=== PATIENT | male | born 1985 | race African-American/Black ===

== ENCOUNTER 2018-11-23 21:02 | Emergency (ER) | payer SELFPAY ==
[~2018-11-23] VITALS: Ht 175.3 cm; Wt 68.0 kg
--- NOTE | 2018-11-23 22:04 | PHYS DOC ---
Past Medical History Past Medical History: No Pertinent History Past Surgical History: No Surgical History Alcohol Use: None Drug Use: None Adult General Chief Complaint Chief Complaint: EARACHE/EAR PAIN HPI HPI 33-year-old male presents with a chief complaint of right sided headache. Patient states this a.m. he started having bilateral ear fullness right greater than left. Prior to arrival patient and radiated from right ureter right occipital region. Patient denies any associated nausea vomiting or blurred vision. Review of Systems Review of Systems Constitutional: Denies fever or chills [] Eyes: Denies change in visual acuity, redness, or eye pain [] HENT: Denies nasal congestion or sore throat [positive ear pain bilateral ] Respiratory: Denies cough or shortness of breath [] Cardiovascular: No additional information not addressed in HPI [] GI: Denies abdominal pain, nausea, vomiting, bloody stools or diarrhea [] : Denies dysuria or hematuria [] Musculoskeletal: Denies back pain or joint pain [] Integument: Denies rash or skin lesions [] Neurologic: Denies , focal weakness or sensory changes [positive headache] Endocrine: Denies polyuria or polydipsia [] All other systems were reviewed and found to be within normal limits, except as documented in this note. Current Medications Current Medications Current Medications Medications (Trade) Dose Ordered Sig/[facility] Start Time Stop Time Status Last Admin Dose Admin Diphenhydramine HCl (Benadryl) 25 mg 1X ONCE 11/23/18 22:15 11/23/18 22:16 DC 11/23/18 23:39 25 MG Ketorolac Tromethamine (Toradol 30mg Vial) 30 mg 1X ONCE 11/23/18 22:15 11/23/18 22:16 DC 11/23/18 22:15 30 MG Allergies Allergies Allergies Coded Allergies Type Severity Reaction Last Updated Verified No Known Drug Allergies 11/23/18 No Physical Exam Physical Exam Constitutional: Well developed, well nourished, no acute distress, non-toxic appearance. [] HENT: Normocephalic, atraumatic, bilateral external ears normal, oropharynx moist, no oral exudates, nose normal. [] Eyes: PERRLA, EOMI, conjunctiva normal, no discharge. [] Neck: Normal range of motion, no tenderness, supple, no stridor. [] Cardiovascular:Heart rate regular rhythm, no murmur [] Lungs & Thorax: Bilateral breath sounds clear to auscultation [] Abdomen: Bowel sounds normal, soft, no tenderness, no masses, no pulsatile masses. [] Skin: Warm, dry, no erythema, no rash. [] Back: No tenderness, no CVA tenderness. [] Extremities: No tenderness, no cyanosis, no clubbing, ROM intact, no edema. [] Neurologic: Alert and oriented X 3, normal motor function, normal sensory function, no focal deficits noted. [Patient amylase with a normal steady gait no facial weakness extraocular muscles intact] Psychologic: Affect normal, judgement normal, mood normal. [] Current Patient Data Vital Signs Vital Signs Date Time Temp Pulse Resp B/P (MAP) Pulse Ox O2 Delivery O2 Flow Rate FiO2 11/24/18 01:23 86 20 97/50 (66) 99 Room Air 11/23/18 21:05 100.4 100.4 EKG EKG [] Radiology/Procedures Radiology/Procedures [] Course & Med Decision Making Course & Med Decision Making Pertinent Labs and Imaging studies reviewed. (See chart for details) []Patient was evaluated for chief complaint. Workup consisted of radiologic imaging. CT head negative for acute abnormalities. Treatment included Benadryl Toradol. Headache improved post treatment. Dragon Disclaimer Dragon Disclaimer This electronic medical record was generated, in whole or in part, using a voice recognition dictation system. Departure Departure Impression: Primary Impression: Headache Additional Impression: Otalgia Disposition: HOME, SELF-CARE Condition: STABLE Referrals: NO PCP (PCP) Patient Instructions: General Headache Without Cause, Otalgia Scripts Naproxen (NAPROSYN) 500 Mg Tablet 500 MG PO BID for 10 Days, #20 TAB Prov: DANIS OROSCO DO 11/24/18 Problem Qualifiers Primary Impression: Headache Headache type: unspecified Headache chronicity pattern: unspecified pattern Intractability: not intractable Qualified Codes: R51 - Headache Additional Impression: Otalgia Laterality: bilateral Qualified Codes: H92.03 - Otalgia, bilateral DANIS OROSCO DO Nov 23, 2018 22:04
[2018-11-23] MEDS ORDERED: diphenhydrAMINE 50 MG/ML VIAL IVP ONE (22:15)
[2018-11-23] MEDS ORDERED: KETOROLAC 30 MG/ML VIAL. IV ONE (22:15)
--- NOTE | 2018-11-23 22:51 | RAD ---
CT HEAD WO CONTRAST Clinical indications: headache, rt ear pain, prior sent COMPARISON: March 29, 2010 Technique: Noncontrast axial cross sectional scanning of the head was performed. PQRS compliance Statement One or more of the following individualized dose reduction techniques were utilized for this study: 1. Automated exposure control 2. Adjustment of the mA and/or kV according to patient size 3. Use of iterative reconstruction technique Findings: No acute intracranial hemorrhage or midline shift or mass-effect or hydrocephalus or extra-axial fluid collection is seen. No focal hypodense area or sulci effacement is seen to indicate an acute infarct or edema radiographically. No skull fracture or pneumocephalus is seen. No opacification of the mastoid sinuses or the middle ear cavities or the paranasal sinuses is seen. The maxillary sinuses are not completely seen in this study. Cerumen is present within the left external auditory canal. Impression: No acute intracranial abnormality is seen. Electronically signed by: Dennis Singh MD (11/23/2018 10:49 PM) [facility]
[2018-11-24] MEDS ORDERED: NAPR-683 PO (01:14)
[2018-11-24 01:23] VITALS: BP 97/50
== END 2018-11-24 01:27 | disposition home or self-care (01) ==
LOC: ER 21:02
DX: R51 Headache (principal); H92.03 Otalgia, bilateral
CPT/HCPCS: 70450; 96374; 96375; 99284; J1200; J1885

== ENCOUNTER 2020-05-20 19:35 | Emergency (ER) | payer MEDICAID ==
[~2020-05-20] VITALS: Ht 175.3 cm; Wt 68.2 kg
[~2020-05-20 19:35] MED LIST: NAPR-683 PO
[2020-05-20] MEDS ORDERED: cefTRIAXone IM 1 GM VIAL IM ONE (21:00)
[2020-05-20] MEDS ORDERED: MORPHINE SULFATE 10 MG/ML VIAL. IM ONE (21:00)
[2020-05-20] MEDS ORDERED: LIDOCAINE 1% PF 2 ML VIAL. INJ ONE (21:00)
[2020-05-20] MEDS ORDERED: HYDR-3164 PO (21:01)
[2020-05-20] MEDS ORDERED: AMOX875T PO (21:01)
--- NOTE | 2020-05-20 21:01 | PHYS DOC ---
Past Medical History Past Medical History: No Pertinent History Past Surgical History: No Surgical History Smoking Status: Current Every Day Smoker Alcohol Use: None Drug Use: None General Adult EDM: Chief Complaint: DENTAL PROBLEM HPI: HPI: Patient is a 35 year old male who presents the ED today complaining of moderate right lower gum dental pain and swelling that began yesterday. Patient states he has had dental problems for 3 years. Patient denies any fever or trismus. He reports he is a current smoker. Review of Systems: Review of Systems: Constitutional: Denies fever or chills. [] Eyes: Denies change in visual acuity. [] HENT: Reports right lower gum dental pain and swelling Musculoskeletal: Denies back pain or joint pain. [] Integument: Denies rash. [] Neurologic: Denies headache, focal weakness or sensory changes. [] Psychiatric: Denies depression or anxiety. [] Heart Score: Risk Factors: Risk Factors: DM, Current or recent (<one month) smoker, HTN, HLP, family history of CAD, obesity. Risk Scores: Score 0 - 3: 2.5% MACE over next 6 weeks - Discharge Home Score 4 - 6: 20.3% MACE over next 6 weeks - Admit for Clinical Observation Score 7 - 10: 72.7% MACE over next 6 weeks - Early Invasive Strategies Current Medications: Current Medications Medications (Trade) Dose Ordered Sig/[facility] Start Time Stop Time Status Last Admin Dose Admin Ceftriaxone Sodium (Rocephin Im) 1 gm 1X ONCE 05/20/20 21:00 05/20/20 21:01 Lidocaine HCl (Xylocaine-Mpf 1% 2ml Vial) 2 ml 1X ONCE 05/20/20 21:00 05/20/20 21:01 Morphine Sulfate (Morphine Sulfate) 5 mg 1X ONCE 05/20/20 21:00 05/20/20 21:01 05/20/20 20:52 5 MG Allergies: Allergies: Allergies Coded Allergies Type Severity Reaction Last Updated Verified No Known Drug Allergies 11/23/18 No Physical Exam: PE: Constitutional: Well developed, well nourished, no acute distress, non-toxic appearance. [] HENT: Normocephalic, atraumatic, bilateral external ears normal, oropharynx moist, no oral exudates, nose normal. Right lower cheek with moderate swelling consistent of a dental abscess. Right lower gum around the molars with diffuse mild swelling with no fluctuance. There is some bleeding going on There is no fluctuance to this region that can be drained Abdomen: Bowel sounds normal, soft, no tenderness, no masses, no pulsatile masses. [] Skin: Warm, dry, no erythema, no rash. [] Back: No tenderness, no CVA tenderness. [] Extremities: No tenderness, no cyanosis, no clubbing, ROM intact, no edema. [] Neurologic: Alert and oriented X 3, normal motor function, normal sensory function, no focal deficits noted. [] Psychologic: Affect normal, judgement normal, mood normal. [] Current Patient Data: Vital Signs: Vital Signs Date Time Temp Pulse Resp B/P (MAP) Pulse Ox O2 Delivery O2 Flow Rate FiO2 05/20/20 20:52 16 97 05/20/20 20:15 97.9 90 126/60 (82) Room Air 97.9 EKG: EKG: [] Radiology/Procedures: Radiology/Procedures: [] Course & Med Decision Making: Course & Med Decision Making Pertinent Labs and Imaging studies reviewed. (See chart for details) This is a 35-year-old male patient with a dental abscess. Patient was given Rocephin IM in the ED. Discharged on amoxicillin. Encouraged to follow-up with a dentist. Also given prescription for Peridex Dragon Disclaimer: Dragon Disclaimer: This electronic medical record was generated, in whole or in part, using a voice recognition dictation system. Departure Departure Impression: Primary Impression: Abscess, dental Additional Impressions: Dentalgia Smoking addiction Disposition: 01 HOME, SELF-CARE Condition: STABLE Referrals: NO PCP (PCP) follow up with a dentist as soon as you can Patient Instructions: Dental Abscess, Dental Pain Additional Instructions: You were seen for dental abscess. Use the prescribed medications as ordered. Follow-up with the dentist as soon as you can. Consider smoking cessation. Scripts Hydrocodone/Apap 5-325 (NORCO 5-325 TABLET) 1 Each Tablet 1 TAB PO Q6-8HRS PRN for PAIN, #18 TAB Prov: MUTUNGA,RAFIQ [employer] 05/20/20 Amoxicillin (AMOXICILLIN) 875 Mg Tablet 1 TAB PO BID, #20 TAB Prov: MUTUNGA,RAFIQ [employer] 05/20/20 Justicifation of Admission Dx: Justifications for Admission: Justification of Admission Dx: N/A RAFIQ LEDESMA APRN May 20, 2020 21:01
[2020-05-20 21:50] VITALS: BP 119/86
== END 2020-05-20 21:52 | disposition home or self-care (01) ==
LOC: ER 19:35
DX: K04.7 Periapical abscess without sinus (principal); F17.200 Nicotine dependence, unspecified, uncomplicated
CPT/HCPCS: 96372; 99284; J0696; J2270

== ENCOUNTER → 2020-09-04 | Outpatient (CLI) | payer OTHER ==
[~2020-09-04] MED LIST changes: +AMOX875T PO; +HYDR-3164 PO
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
== END ==
LOC: RAD 09:51
PROVIDERS: ATTEND Surgery
DX: M24.671 Ankylosis, right ankle (principal); M21.6X1 Other acquired deformities of right foot
CPT/HCPCS: 73600

== ENCOUNTER 2021-04-13 19:19 | Emergency (ER) | payer OTHER | END 2021-04-13 20:14 | disposition left against medical advice (07) | LOC: ER 19:19 | DX: T23.001A Burn of unspecified degree of right hand, unspecified site, initial encounter (principal); Z53.21 Procedure and treatment not carried out due to patient leaving prior to being seen by health care provider; X08.8XXA Exposure to other specified smoke, fire and flames, initial encounter; Y93.89 Activity, other specified; Y92.89 Other specified places as the place of occurrence of the external cause; Y99.8 Other external cause status ==